=== PATIENT | female | born 1990 | race African-American/Black ===

== ENCOUNTER 2025-11-02 20:31 | Emergency (ER) | payer MEDICAID ==
[~2025-11-02] VITALS: Ht 160 cm; Wt 55.0 kg
[2025-11-02 20:43] VITALS: O2SAT 100
[2025-11-02] MEDS: BACITRACIN ZINC OINT UDPKT TOP ONE (23:20)
[2025-11-02] MEDS: LIDOCAINE HCL 1% 20ML VIAL INFIL ONE (23:20)
[2025-11-03] MEDS ORDERED: AMOX1TAB16 MT (00:03)
[2025-11-03] MEDS ORDERED: BO1 TP (00:03)
[2025-11-03 00:37] VITALS: BP 102/51; PULSE 60; RESP 18; TEMP 36.8; O2SAT 100
== END 2025-11-03 00:43 | disposition home or self-care (01) ==
LOC: ER 20:38
DX: S61.216A Laceration without foreign body of right little finger without damage to nail, initial encounter (principal); S61.256A Open bite of right little finger without damage to nail, initial encounter; W54.0XXA Bitten by dog, initial encounter; Y93.89 Activity, other specified; Y92.89 Other specified places as the place of occurrence of the external cause; Y99.8 Other external cause status
CPT/HCPCS: 12001; 99283